=== PATIENT | female | born 1995 | race Caucasian/White ===

== ENCOUNTER → 2020-10-21 10:54 | Day surgery (SDC) | payer BC, MEDICAID, SELFPAY ==
[2020-10-21 11:05] VITALS: BMI 30.9
[2020-10-21 12:59] VITALS: BP 105/60; PULSE 80; RESP 18; TEMP 36.6; O2SAT 99
[2020-10-21 13:09] VITALS: BP 105/60; PULSE 80; RESP 18; TEMP 36.6; O2SAT 99
== END ==
PROVIDERS: PCP Family Medicine; Visit Provider Family Medicine
DX: O26.899 Other specified pregnancy related conditions, unspecified trimester (principal); Z3A.00 Weeks of gestation of pregnancy not specified; Z31.82 Encounter for Rh incompatibility status; Z67.91 Unspecified blood type, Rh negative
CPT/HCPCS: 36415; 86850; 86900; 90384; 96372

== ENCOUNTER 2020-12-25 19:25 | Inpatient (IN) | payer BC, MEDICAID, SELFPAY ==
[2020-12-25] VITALS (13 sets, daily range): BP systolic 107–115; BP diastolic 62–72; PULSE 82–115; RESP 16–18; O2SAT 98–99
[2020-12-25 19:34] LABS: Basophils % 0.3 %; Eosinophils # 0.1 10^3/uL (0.0-0.8); Eosinophils % 0.7 %; Hematocrit 32.4 % (37.0-47.0); Hemoglobin 9.6 g/dL (11.5-15.3); Lymphocytes # 2.6 10^3/uL (0.8-4.8); Lymphocytes % 16.9 %; Mean Corpuscular HGB Conc 29.6 g/dL (30.0-36.0); Mean Corpuscular Hemoglobin 22.2 pg (28.0-34.0); Mean Corpuscular Volume 74.8 fL (81-99); Mean Platelet Volume 9.8 fL (7.4-10.4); Monocytes # 0.6 10^3/uL (0.2-0.9); Monocytes % 4.1 %; Neutrophils # 11.68 10^3/uL (1.8-7.7); Neutrophils % 77.1 %; Nucleated Red Blood Cells % 0 %; Platelet Count 302 10^3/cmm (130-400); Red Blood Count 4.33 10^6/uL (4.1-5.3); Red Cell Distribution Width 14.5 % (12.1-15.1); White Blood Count 15.1 10^3/uL (4.0-10.0)
[2020-12-25] MEDS: miSOPROStol 100 mcg tablet 25 MCG VAGINAL (19:55)
[2020-12-26] VITALS (76 sets, daily range): BP systolic 86–124; BP diastolic 51–78; PULSE 68–132; RESP 16; TEMP 36.1–36.7; O2SAT 95–100
--- NOTE | 2020-12-26 01:45 | ANES.PREANE2 ---
Pre-Anesthetic Assessment Pre-Anesthetic Assessment: Height/Weight: Height 1.68 m Pulse Resp BP Pulse Ox 87 18 101/55 97 12/26/20 02:29 12/25/20 19:55 12/26/20 02:27 12/26/20 02:29 Preop Diagnosis: IUP Proposed Procedure: labor epidural Was Beta Rajeev taken within 24 hours: N/A Was Clonidine taken within 24 hours: N/A Social: Social History: No alcohol and No tobacco Exam: Pre-Anes Outpt Exam: alert, oriented x 3, clear to auscultation bilaterally and regular rate & rhythm Airway: Submandibular: WNL Cervical ROM: WNL MP: 1 History/ROS: No significant history except as noted Pulmonary: Pulmonary: None reported CV/HEM: CV/HEM: None reported : : None reported Hepatic: Hepatic: None reported GI: GI: GERD Metabolic: Metabolic: None reported Musc/skel: Musc/skel: None reported Neuropsych: Neuropsych: Anxiety and Depression Anesthetic Plan: ASA status: 1 Anesthesia: Anesthesia Evaluation Risk of > 500 ml blood loss (7ml/kg in children): No PFSH Anesthesia Female Reproductive History: : 4 Data Anesthesia CBC & Chem 7: 12/25/20 19:10 Other Labs: Laboratory Results - last 48 hr 12/25/20 19:10 WBC 15.1 H RBC 4.33 Hgb 9.6 L Hct 32.4 L MCV 74.8 L MCH 22.2 L MCHC 29.6 L RDW 14.5 Plt Count 302 MPV 9.8 Neut % (Auto) 77.1 Lymph % (Auto) 16.9 Calvert % (Auto) 4.1 Eos % (Auto) 0.7 Baso % (Auto) 0.3 Neut # (Auto) 11.68 H Lymph # (Auto) 2.6 Calvert # (Auto) 0.6 Eos # (Auto) 0.1 Baso # (Auto) 0.0 Nucleated RBC % (auto) 0 Nucleated RBCs # 0.0 Cardiac Studies: No Data to Display
--- NOTE | 2020-12-26 02:33 | ANES.PROC ---
Anesthesia Procedures Procedure/Date: 12/26/20 Epidural: Time Out Performed: Yes Consents Signed: Procedure Consent Consent: requested by attending/covering physician Lumbar Level: L4-L5 Epidural position: sitting Epidural procedure: sterile prep of area, 1% lidocaine to numb the area, 18 g needle, negative for paresthesia passed, neg for paresthesia, test dose given, 1.5% xylocaine 1:200k epi (3ml), placed PCEA, no systemic response, sterile dressing applied, L.U.D. no apparent complications and 0.2% Ropiavacaine @ mls/hr (13) Additional Comments: 10-15 minutes after placing epidural, patient experiencing nausea, Zofran given IVP. BP stable at 107/49, HR 90. IV fluids open
--- NOTE | 2020-12-26 03:03 | ANES.PROC ---
Anesthesia Procedures Procedure/Date: 12/26/20 Procedure Narrative: Pt complaining of complete relief on the Left side with pain in Right legs/buttocks. no relief by tilting patient to the Right. epidural catheter pulled back and 3ml lido with epi given per catheter
[2020-12-26] MEDS: dextrose 5%-lactated ringers 1,000 ML 125 ML IV (03:30)
[2020-12-26] MEDS: oxytocin 30 UNIT/500 ML BAG 600 UNIT IV (06:07)
--- NOTE | 2020-12-26 06:32 | P.PCNOB_ITS ---
Delivery Note: Date of delivery: December 26, 2020 Pre-delivery diagnoses: 25-year-old 4 para 3-0-0-2 37 weeks and 6 days estimated gestational age History of 36-week demise Post-delivery diagnoses: Same Procedure: Spontaneous vaginal delivery Op report anesthesia: Epidural Delivering Physician: Kemal Stark Estimated blood loss (mL): 100 Pre-Delivery Course: The patient is a 25-year-old 4 para 3-0-0-2 with an estimated gestational age of 37 weeks and 6 days who presented to the hospital for induction due to a history of demise at 36 weeks gestational age. This had otherwise been unremarkable. She is Covid negative. She is GBS negative. Her blood type is A-. The remainder of her labs are within normal limits. Shortly after presenting to the hospital last night, Cytotec 25 mcg x 1 was placed. An epidural was placed. She then progressed to complete without difficulty. Amniotomy was performed. Patient then pushed through 4 contractions. Delivery: DELIVERY: The patient progressed to complete without difficulty. She delivered a female with a weight of 6 pounds 1 ounces with Apgars of 7, 8. The baby was delivered from the JAIRO position. The baby's mouth and nose were suctioned at the site of the perineum. The baby was then completely delivered and placed on the mother's abdomen. The cord was then clamped and cut. There was a nuchal cord x1 which could not be reduced. As result it was clamped and cut at the perineum before the baby could be delivered. There was no meconium. The placenta and 3 vessel cord were delivered intact shortly thereafter. The perineum and vaginal vault were carefully examined. No lacerations were noted. Both the mother and the baby were in stable condition. Post-Delivery Status: Good A&P Assessment and plan (1) 37 weeks gestation of : I Anticipate routine care. She would likely be discharged tomorrow if all goes well. 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
[2020-12-26] MEDS: ibuprofen 800 mg tablet PO ×3 (09:07→21:32)
[2020-12-26] MEDS: lanolin oint 7 gm 1 APPLIC TOPICAL (09:07)
[2020-12-26] MEDS: docusate sodium 100 mg Capsule PO ×2 (09:07→21:32)
[2020-12-26] MEDS: prenatal vitamin Capsule 1 CAP PO (09:07)
[2020-12-26] MEDS: benzocaine-menthol 78 gm Canister 1 SPRAY TOPICAL (09:08)
[2020-12-26] MEDS: HYDROcodone-acetaminophen 5-325 mg Tablet 1 TAB PO (11:01)
[2020-12-26 18:53] LABS: Hematocrit 30.2 % (37.0-47.0); Mean Corpuscular HGB Conc 29.8 g/dL (30.0-36.0); Mean Corpuscular Hemoglobin 22.4 pg (28.0-34.0); Mean Corpuscular Volume 75.1 fL (81-99); Mean Platelet Volume 9.9 fL (7.4-10.4); Platelet Count 258 10^3/cmm (130-400); Red Blood Count 4.02 10^6/uL (4.1-5.3); Red Cell Distribution Width 14.6 % (12.1-15.1)
[2020-12-27 05:29] VITALS: BP 107/71; PULSE 85
[2020-12-27 07:25] VITALS: BP 130/81; PULSE 97
--- NOTE | 2020-12-27 07:46 | PM.OBGYDC ---
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 She was placed on Cytotec 25 mcg per vagina x1. An epidural was placed. She progressed to complete and had an unremarkable delivery of a healthy-appearing female infant. Her course was also unremarkable. Her bleeding was within normal limits. She breast-fed well. Her pain was well controlled. There were no concerns Information Peripartum Data: Delivery Method: Vaginal Physical Exam Narrative: EXAM NARRATIVE: The patient is alert. She appears comfortable. Her heart has a regular rate and rhythm with no murmurs appreciated. Lungs are clear to auscultation bilaterally. Her fundus is firm and below the umbilicus. Urinary Catheter Management^: Schmid: Cath Placed During This Visit: yes, but has since been removed by the nurse Reason for Continuing Indwelling Catheter: Not indwelling catheter Urinary Catheter Date of Insertion: 12/26/20 Urinary Catheter Time of Insertion: 02:20 Date Urinary Catheter Removed: 12/26/20 Time Urinary Catheter Discontinued: 05:57 Discharge Data Data Completed and Pending: Pending at discharge Category Date Time Status Complete Crossmat ch Routine Lab 12/25/20 19:10 Results Rho D Immune Glob ulin Routine Lab 12/25/20 19:10 Results Type and Screen R outine Lab 12/25/20 19:10 Results Labs from last 24 hours 12/26/20 12/26/20 12/25/20 18:30 18:30 19:10 WBC 14.0 H RBC 4.02 L Hgb 9.0 L Hct 30.2 L MCV 75.1 L MCH 22.4 L MCHC 29.8 L RDW 14.6 Plt Count 258 MPV 9.9 Blood Type A Negative Rho(D) Type Negative / 0 Antibody Screen Negative Screen Negative Vitals: Last Vital Signs Temp 97.0 F L 12/26/20 16:56 Pulse 97 12/27/20 07:25 Resp 16 12/26/20 07:36 BP 130/81 12/27/20 07:25 Pulse Ox 99 12/26/20 03:54 Discharge Plan Discharge Patient Disposition: Home Condition: Stable Prescriptions: New ibuprofen 800 mg Tablet 800 mg PO TID Qty: 45 RF: 0 Continued sertraline 25 mg Tablet 25 mg PO DAILY RF: 0 PNV comb no.58-iron bisgly-FA 10-400 mg-mcg Capsule 1 cap PO DAILY RF: 0 Discontinued omeprazole 20 mg Capsule,Delayed Release(Dr/Ec) 20 mg PO DAILY RF: 0 Discharge Orders: Discharge Order (Routine); Ordered 12/27/20 Ordered By: Kemal Stark Referrals: Kemal Stark MD [Primary Care Provider] - 6 Weeks Discharge Diet: Usual diet Discharge Activity: Limit activity as instructed Patient Instructions: Vaginal Delivery (DC), Pre-eclampsia and Eclampsia (DC), Bleeding (DC), OB Discharge Report, OB Food/Drug Interaction Guide, OB Home Care, OB Proud Parent Packet Discharge Attestations WATER GAS OPERATOR Time Spent in Discharge Care*: less than 30 min Coding Level of Care Code Acute Customer Engagement Analyst for Chg Fwd Diagnoses 37 weeks gestation of Z3A.37 Spontaneous vaginal delivery O80
[2020-12-27 08:35] VITALS: PULSE 110; RESP 17
--- NOTE | 2020-12-27 08:37 | PC.NURSE ---
right upper gluteus
[2020-12-27 10:03] VITALS: BP 120/75; PULSE 93
[2020-12-27] MEDS: ibuprofen 800 mg tablet PO (10:03)
[2020-12-27] MEDS: prenatal vitamin Capsule 1 CAP PO (10:03)
[2020-12-27] MEDS: docusate sodium 100 mg Capsule PO (10:03)
[2020-12-27 10:19] VITALS: BP 120/75; PULSE 93
== END 2020-12-27 10:05 | disposition home or self-care (01) | DRG 807 ==
LOC: OBGYN 19:49
PROVIDERS: Admitting Provider Family Medicine; PCP Family Medicine; Visit Provider Family Medicine
DX: O69.81X0 Labor and delivery complicated by cord around neck, without compression, not applicable or unspecified (principal); Z37.0 Single live birth; Z3A.37 37 weeks gestation of pregnancy
CPT/HCPCS: 12345; 36415; 51702; 59025; 59409; 85025; 85027; 85460; 86850; 86900; 90384; J2405; J2795